=== PATIENT | male | born 1950 | race Caucasian/White ===

== ENCOUNTER → 2017-12-28 | Outpatient (CLI) | payer MEDICARE, BC | LOC: PLD 11:39 → LAB SHORT 11:39 | DX: L57.0 Actinic keratosis (principal) | CPT/HCPCS: 88305 ==

== ENCOUNTER 2018-12-12 07:48 | Day surgery (SDC) | payer MEDICARE, BC ==
[~2018-12-12] VITALS: Ht 177.8 cm; Wt 76.3 kg
[~2018-12-12 07:48] MED LIST: ACET500 PO; AMLO5 PO; ATOR40TA PO; LO-DOSE ASPIRIN81 MG PO; ONE DAILY COMP1 EACH PO; PRAMIPEXOLE DIHY1 MG PO; Toprol Xl50 MG PO
--- NOTE | 2018-12-12 11:49 | NUR ---
12/12/18 1149 Marni Camacho PT STATES HE IS HAVING A HARD TIME URINATING. PT RECEIVED EXTRA FLUIDS D/T LENGTH OF PROCEDURE. ORSC.KT STATES IN REPROT THAT PT URINATED DURING PROCEDURE. PT BP ELEVATED IN STEP DOWN. DR ARCE NOTIFIED OF BOTH THESE EVENTS. NO ORDERS RECEIVED AT THIS TIME. PT OK TO DISCHARGE HOME PER DR ARCE. ADVISED PT TO LET US KNOW IF HIS URINATION DOES NOT IMPROVE. PT AND BOTH STATE AN UNDERSTANDING.
== END 2018-12-12 11:54 | disposition home or self-care (01) ==
LOC: ORSCSDS 07:48
PROVIDERS: Internal Medicine Gastroenterology
PROC: 0DBH8ZX Excision of Cecum, Via Natural or Artificial Opening Endoscopic, Diagnostic (ICD-10-PCS; principal; 2018-12-12 09:15)
PROC: 0DBN8ZX Excision of Sigmoid Colon, Via Natural or Artificial Opening Endoscopic, Diagnostic (ICD-10-PCS; principal; 2018-12-12 09:15)
PROC: 0DBL8ZX Excision of Transverse Colon, Via Natural or Artificial Opening Endoscopic, Diagnostic (ICD-10-PCS; principal; 2018-12-12 09:15)
PROC: 0DBK8ZX Excision of Ascending Colon, Via Natural or Artificial Opening Endoscopic, Diagnostic (ICD-10-PCS; principal; 2018-12-12 09:15)
PROC: 0DBP8ZX Excision of Rectum, Via Natural or Artificial Opening Endoscopic, Diagnostic (ICD-10-PCS; principal; 2018-12-12 09:15)
DX: Z12.11 Encounter for screening for malignant neoplasm of colon (principal); D12.3 Benign neoplasm of transverse colon; D12.0 Benign neoplasm of cecum; D12.2 Benign neoplasm of ascending colon; K63.5 Polyp of colon; K62.1 Rectal polyp; K57.30 Diverticulosis of large intestine without perforation or abscess without bleeding; Z87.891 Personal history of nicotine dependence; Z79.899 Other long term (current) drug therapy; Z79.82 Long term (current) use of aspirin
CPT/HCPCS: 88305; J1980; J2704; J7120

== ENCOUNTER 2019-05-08 21:45 | Emergency (ER) | payer MEDICARE, BC ==
[~2019-05-08] VITALS: Ht 177.8 cm; Wt 77.1 kg
== END 2019-05-08 23:36 | disposition home or self-care (01) ==
LOC: ER 21:45
DX: S01.81XA Laceration without foreign body of other part of head, initial encounter (principal); Z23 Encounter for immunization; I10 Essential (primary) hypertension; E78.00 Pure hypercholesterolemia, unspecified; M19.90 Unspecified osteoarthritis, unspecified site; Z88.8 Allergy status to other drugs, medicaments and biological substances; Z79.899 Other long term (current) drug therapy; W11.XXXA Fall on and from ladder, initial encounter
CPT/HCPCS: 12013; 90471; 90714; 99282-25

== ENCOUNTER → 2019-12-03 | Outpatient (CLI) | payer MEDICARE, BC | END | disposition home or self-care (01) | LOC: PLD 10:54 → LAB SHORT 10:54 | DX: L57.0 Actinic keratosis (principal) | CPT/HCPCS: 88305 ==

== ENCOUNTER 2022-05-29 13:53 | Emergency (ER) | payer OTHER, MEDICARE, BC ==
[~2022-05-29] VITALS: Ht 175.3 cm; Wt 77.1 kg
[2022-05-29] MEDS ORDERED: CEPH500 PO (15:20)
== END 2022-05-29 16:32 | disposition home or self-care (01) ==
LOC: ER 13:53
DX: S61.412A Laceration without foreign body of left hand, initial encounter (principal); I10 Essential (primary) hypertension; W01.198A Fall on same level from slipping, tripping and stumbling with subsequent striking against other object, initial encounter; Z79.899 Other long term (current) drug therapy; Z88.8 Allergy status to other drugs, medicaments and biological substances; Z23 Encounter for immunization
CPT/HCPCS: 12002; 90471; 90714; 99282-25

== ENCOUNTER → 2023-08-12 | Outpatient (CLI) | payer MEDICARE, BC ==
[~2023-08-12] MED LIST changes: +CEPH500 PO
[2023-08-12 15:32] LABS: Source, Urine Clean Catch
[2023-08-12 15:58] LABS: Appearance, Urine Cloudy (Clear); Bilirubin, Urine Neg (Neg); Blood, Urine 1+ (Neg); Color, Urine Yellow (P-Yellow); Glucose Qualitative, Urine Neg (Normal); Ketones, Urine Neg (Neg); Leukocyte Esterase, Urine 2+ (Neg); Nitrite, Urine Pos (Neg); Protein, Urine Trace (Neg); Urobilinogen, Urine NORM (Normal)
[2023-08-12 15:59] LABS: Bacteria Many /hpf; Red Blood Cells, Urine 25-50 /hpf (0-2); Squamous Epithelial Cells Not Seen /hpf (Few); White Blood Cells, Urine 50-100 /hpf (0-5)
== END ==
LOC: LAB 13:32 → LAB SHORT 13:32
PROVIDERS: Physician Assistant
DX: R35.0 Frequency of micturition (principal)
CPT/HCPCS: 81001

== ENCOUNTER → 2023-09-05 | Outpatient (CLI) | payer MEDICARE, BC | LOC: LAB SHORT 09:18 → LAB 09:18 | DX: N39.0 Urinary tract infection, site not specified (principal) | CPT/HCPCS: 87077; 87086; 87186 ==

== ENCOUNTER 2024-04-30 08:49 | Inpatient (IN) | payer MEDICARE, BC ==
[~2024-04-30] VITALS: Ht 177.8 cm; Wt 74.0 kg
[2024-04-30 09:28] LABS: BASOPHILS ABSOLUTE AUTO 0.04 K/mm3 (0.00-0.23); BASOPHILS PERCENT AUTO 1 % (0-2); EOSINOPHILS ABSOLUTE AUTO 0.23 K/mm3 (0.00-0.68); EOSINOPHILS PERCENT AUTO 3 % (0-6); Hematocrit 43.6 % (37.0-53.0); IMMATURE GRAN ABSOLUTE AUTO 0.03 K/mm3 (0.00-0.10); IMMATURE GRAN PERCENT AUTO 0 % (0-1); LYMPHOCYTES ABSOLUTE AUTO 2.13 K/mm3 (0.84-5.20); LYMPHOCYTES PERCENT AUTO 26 % (21-46); MONOCYTES ABSOLUTE AUTO 0.69 K/mm3 (0.16-1.47); MONOCYTES PERCENT AUTO 8 % (4-13); Mean Corpuscular HGB 31.7 pg (26.0-34.0); Mean Corpuscular HGB Conc 32.1 g/dL (31.5-36.5); Mean Corpuscular Volume 99 fL (80-100); Mean Platelet Volume 10.7 fL (9.1-12.4); NEUTROPHILS ABSOLUTE AUTO 5.17 K/mm3 (1.96-9.15); NEUTROPHILS PERCENT AUTO 62 % (41-73); Platelet Count 251 K/mm3 (150-400); RDW Coefficient Variation 12.1 % (11.7-14.2); RDW Standard Deviation 44.5 fL (35.1-46.3); Red Blood Cell Count 4.41 M/mm3 (4.30-5.90); White Blood Cell Count 8.29 K/mm3 (4.00-11.30)
[2024-04-30] MEDS ORDERED: Ketamine HCl 100 MG / ML 5ML Vial IV ONE (10:30)
[2024-04-30 10:32] LABS: Albumin, Blood 3.6 g/dL (3.4-5.0); Albumin/Globulin Ratio 1.2 (0.8-1.8); Bilirubin, Total 0.5 mg/dL (0.1-1.0); Bun/Creatinine Ratio 18.2 (12.0-20.0); Creatinine, Blood 1.32 mg/dL (0.60-1.20); Globulin, Blood 3.1 g/dL (2.2-4.0); Potassium, Blood 4.1 mmol/L (3.5-5.5); Total Protein, Blood 6.7 g/dL (6.4-8.2)
[2024-04-30] MEDS ORDERED: Midazolam HCl 1MG / ML 2ML Vial IV ONE (10:35)
[2024-04-30] MEDS ORDERED: CeFAZolin Sodium 1,000 MG in NS 50 ML IV ONE (12:05)
[2024-04-30] MEDS ORDERED: Ketorolac Tromethamine 15mg Vial IV ONE (13:15)
[2024-04-30] MEDS ORDERED: Morphine Sulfate 4 MG/1 ML Injection IV ONE (13:45)
[2024-04-30] MEDS ORDERED: Ondansetron HCl 2 MG / ML 2ML Vial IV ONE (13:45)
[2024-04-30] MEDS ORDERED: Magnesium Hydroxide Conc 10 ML UDC PO PRN (15:05)
[2024-04-30] MEDS ORDERED: Temazepam 15 MG Cap PO PRN (15:05)
[2024-04-30] MEDS ORDERED: OxyCODONE HCL 5 MG TAB PO PRN (15:05)
[2024-04-30] MEDS ORDERED: Morphine Sulfate 4 MG/1 ML Injection IV PRN (15:05)
--- NOTE | 2024-04-30 18:14 | NUR ---
Pt admitted to floor at 1808, VSS, denies SOB, denies any pain, A-Ox4, ambulates independently, on RA, chest tube in place to -20 suction, dressing C/D/I.
[2024-04-30 18:15] VITALS: BP 192/96
[2024-04-30 19:35] VITALS: BP 149/64
[2024-04-30] MEDS ORDERED: Docusate Sodium 100 MG Cap PO SCH (21:00)
[2024-04-30] MEDS ORDERED: Acetaminophen 500 MG Tab PO SCH (21:00)
[2024-04-30] MEDS ORDERED: Pramipexole DI-HCL 1 Mg Tab PO SCH (21:00)
--- NOTE | 2024-05-01 03:02 | NUR ---
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 ALERT AND ORIENTED X 4. UP AD GABE WITH OBS. CHEST TUBE OF LEFT SIDE AT -20 SUCTION. TOLERATING FLUIDS WELL. SLIGHT DRAINAGE - SANGUINUS IN CANISTER. HAS BEEN RESTING QUIETLY WITH FEW INTERRUPTIONS NOTED. ABLE TO REPOSITION SELF IN BED WITHOUT ASSIST. NO NOTED S/S SOB. WILL CONTINUE TO MONITOR. CALL LIGHT IN REACH, RAILS UP X 2 AND BID IN LOW POSITION.
[2024-05-01 03:49] VITALS: BP 151/83
[2024-05-01 05:13] LABS: BASOPHILS ABSOLUTE AUTO 0.02 K/mm3 (0.00-0.23); BASOPHILS PERCENT AUTO 0 % (0-2); EOSINOPHILS ABSOLUTE AUTO 0.14 K/mm3 (0.00-0.68); EOSINOPHILS PERCENT AUTO 1 % (0-6); Hematocrit 39.9 % (37.0-53.0); Hemoglobin 13.2 g/dL (13.5-17.5); IMMATURE GRAN ABSOLUTE AUTO 0.03 K/mm3 (0.00-0.10); IMMATURE GRAN PERCENT AUTO 0 % (0-1); LYMPHOCYTES ABSOLUTE AUTO 1.65 K/mm3 (0.84-5.20); LYMPHOCYTES PERCENT AUTO 14 % (21-46); MONOCYTES ABSOLUTE AUTO 0.77 K/mm3 (0.16-1.47); MONOCYTES PERCENT AUTO 7 % (4-13); Mean Corpuscular HGB 32.4 pg (26.0-34.0); Mean Corpuscular HGB Conc 33.1 g/dL (31.5-36.5); Mean Corpuscular Volume 98 fL (80-100); Mean Platelet Volume 10.9 fL (9.1-12.4); NEUTROPHILS ABSOLUTE AUTO 9.22 K/mm3 (1.96-9.15); NEUTROPHILS PERCENT AUTO 78 % (41-73); Platelet Count 227 K/mm3 (150-400); Red Blood Cell Count 4.07 M/mm3 (4.30-5.90); White Blood Cell Count 11.83 K/mm3 (4.00-11.30)
[2024-05-01 05:42] LABS: Albumin, Blood 3.3 g/dL (3.4-5.0); Albumin/Globulin Ratio 1.2 (0.8-1.8); Bilirubin, Total 0.4 mg/dL (0.1-1.0); Bun/Creatinine Ratio 16.7 (12.0-20.0); Calcium, Blood 8.6 mg/dL (8.5-10.1); Creatinine, Blood 1.38 mg/dL (0.60-1.20); Globulin, Blood 2.7 g/dL (2.2-4.0); Potassium, Blood 4.5 mmol/L (3.5-5.5)
[2024-05-01 08:02] VITALS: BP 139/76
[2024-05-01] MEDS ORDERED: Losartan Potassium 50 MG Tab PO SCH (09:00)
[2024-05-01] MEDS ORDERED: Metoprolol Succinate 50 MG TABCR PO SCH (09:00)
[2024-05-01] MEDS ORDERED: Enoxaparin 40 MG/0.4 ML SYR SC SCH (09:00)
[2024-05-01] MEDS ORDERED: Atorvastatin 40 MG Tab PO SCH (09:00)
[2024-05-01] MEDS ORDERED: AmLODIPine Besylate 5 MG Tab PO SCH (09:00)
[2024-05-01] MEDS ORDERED: LOSA50 PO (12:45)
[2024-05-01 16:08] VITALS: BP 149/79
--- NOTE | 2024-05-01 17:16 | NUR ---
SUMMARY- AAOX4, BUT PT IS SHOWING SIGNS OF STM LOSS AND IS FORGETFUL. IND IN ROOM. PT ON RA. DR. RAMIREZ CLAMPED PT'S CHEST TUBE TODAY AND TURNED SUCTION OFF. DR. RAMIREZ LATER DISCONNECTED CHEST TUBE AND CAPPED IT. PT IS TOLERATING CHEST TUBE CLAMP WELL. NO ACUTE EVENTS THIS SHIFT. PT HAD MINIMAL COMPLAINTS OF PAIN AND DID NOT NEED ANY PAIN MEDS THIS SHIFT.
[2024-05-01 19:43] VITALS: BP 157/82
[2024-05-02 03:05] VITALS: BP 161/90
--- NOTE | 2024-05-02 03:14 | NUR ---
PT NOTED OOB UP IN HALLWAY DREED IN JEANS AND FLANNEL SHIRT. PT WAS ASKED HIS INTENTIONS. PT RESPONDED HE WAS GOING DOWN STAIRS TO MAKE A PHONE CALL. PT REDIRECTED AND ASSISTED BACK TO BED. ON REQUEST PT STATED, "I WAS DOING FINE SO I TOOK THE TUBE OUT. PT ASSISTED BACK TO BED, VASELINE GAUZE APPLIED COVERED W/4X4, AND TAPED WELL. LUNGS SOUNDS NOTED CLEAR. PT CONFUSED TO PLACE AND TIME. VSS STABLE, EXCEPT BP 161/90. MD PATTEN NOTIFIED. STAT CXR ORDERED. PT REFUSED HOSPITAL [facility]. MONITORED FREQUENTLY.
--- NOTE | 2024-05-02 03:49 | NUR ---
PT ACCIDENTALLY PULLED OUT CHEST TUBE FROM L LUNG, STAT PORTABLE CXR DONE, SPOKE WITH DR PATTEN WHO REPORTS THAT THE CXR SHOWS THE L LUNG IS STILL FULLY EXPANDED AND ORDERED ANOTHER CXR IN 8 HOURS TO CONTINUE TO MONITOR. PRIMARY RN IS AWARE.
--- NOTE | 2024-05-02 03:50 | NUR ---
STATES CXR, "...LOOKS GOOD. REPEAT CXR IN 8 HRS."
[2024-05-02 05:32] LABS: BASOPHILS ABSOLUTE AUTO 0.03 K/mm3 (0.00-0.23); BASOPHILS PERCENT AUTO 0 % (0-2); EOSINOPHILS ABSOLUTE AUTO 0.24 K/mm3 (0.00-0.68); EOSINOPHILS PERCENT AUTO 2 % (0-6); Hematocrit 40.7 % (37.0-53.0); Hemoglobin 13.6 g/dL (13.5-17.5); IMMATURE GRAN ABSOLUTE AUTO 0.04 K/mm3 (0.00-0.10); IMMATURE GRAN PERCENT AUTO 0 % (0-1); LYMPHOCYTES ABSOLUTE AUTO 1.52 K/mm3 (0.84-5.20); LYMPHOCYTES PERCENT AUTO 15 % (21-46); MONOCYTES ABSOLUTE AUTO 0.81 K/mm3 (0.16-1.47); MONOCYTES PERCENT AUTO 8 % (4-13); Mean Corpuscular HGB 32.5 pg (26.0-34.0); Mean Corpuscular HGB Conc 33.4 g/dL (31.5-36.5); Mean Corpuscular Volume 97 fL (80-100); NEUTROPHILS ABSOLUTE AUTO 7.65 K/mm3 (1.96-9.15); NEUTROPHILS PERCENT AUTO 74 % (41-73); Platelet Count 229 K/mm3 (150-400); RDW Coefficient Variation 11.9 % (11.7-14.2); RDW Standard Deviation 42.4 fL (35.1-46.3); Red Blood Cell Count 4.19 M/mm3 (4.30-5.90); White Blood Cell Count 10.29 K/mm3 (4.00-11.30)
[2024-05-02 05:55] LABS: Albumin, Blood 3.3 g/dL (3.4-5.0); Bilirubin, Total 0.3 mg/dL (0.1-1.0); Bun/Creatinine Ratio 15.6 (12.0-20.0); Calcium, Blood 8.9 mg/dL (8.5-10.1); Creatinine, Blood 1.22 mg/dL (0.60-1.20); Globulin, Blood 3.2 g/dL (2.2-4.0); Potassium, Blood 3.9 mmol/L (3.5-5.5); Total Protein, Blood 6.5 g/dL (6.4-8.2)
--- NOTE | 2024-05-02 07:35 | NUR ---
0700- PT ANXIOUS AND ASKING TO LEAVE WHEN RECEIVING REPORT. BOTH RN'S REINFORCING IMPORTANCE OF GETTING CXR AT 1145 AND HAVING A SAFE DC. PT VERBALIZES UNDERSTANDING, BUT STATES, "I JUST DON'T SEE THE POINT OF STAYING ANY LONGER." BOTH CHARGES NOTIFIED.
--- NOTE | 2024-05-02 07:37 | NUR ---
0743- PT DRESSED AND ATTEMPTING TO WALK OUT THE DOOR. THIS RN ASKED IF PT COULD PLEASE WAIT TO LEAVE AND SIGN AMA PAPERWORK, MAKE ATTEMPTS TO CALL DR. COBURN AND DR. RAMIREZ, WELL HIS . PT WAITING IN HIS ROOM.
--- NOTE | 2024-05-02 07:38 | NUR ---
0723- THIS RN CALLED DR. COBURN AND MD IS NOT IN THE HOSPITAL AT THIS TIME. MD ASKED FOR DR. RAMIREZ TO BE CALLED.
--- NOTE | 2024-05-02 07:39 | NUR ---
0725- PATIENT STATES, "YOU CAN'T LEGALLY HOLD HE HERE YOU KNOW." THIS RN STATES, "YOU'RE RIGHT, BUT I WOULD LIKE TO NOTIFY THE SOFTWARE SUPPORT SPECIALIST DR. RAMIREZ." PT THEN BEGAN WALKING STRAIGHT FOR THE EXIT DOOR. PT HAS OCCLUSIVE PETROLEUM GAUZE DRESSING IN PLACE OVER CHEST TUBE INSERTION SITE AND PT ALSO REMOVED HIS OWN IV. PT LEFT AMA WITHOUT SIGNING PAPERWORK.
== END 2024-05-02 07:30 | disposition left against medical advice (07) | DRG 201 ==
LOC: ER 08:49 → MEDS 08:50
PROVIDERS: Family Medicine; Physician Assistant; ADMIT Internal Medicine Endocrinology, Diabetes & Metabolism
PROC: 0W9B30Z Drainage of Left Pleural Cavity with Drainage Device, Percutaneous Approach (ICD-10-PCS; principal; 2024-04-30)
DX: J93.12 Secondary spontaneous pneumothorax (principal); E78.5 Hyperlipidemia, unspecified; I12.9 Hypertensive chronic kidney disease with stage 1 through stage 4 chronic kidney disease, or unspecified chronic kidney disease; J43.9 Emphysema, unspecified; I70.1 Atherosclerosis of renal artery; M19.90 Unspecified osteoarthritis, unspecified site; N18.32 Chronic kidney disease, stage 3b; E78.00 Pure hypercholesterolemia, unspecified; G25.81 Restless legs syndrome; Z53.29 Procedure and treatment not carried out because of patient's decision for other reasons; Z88.8 Allergy status to other drugs, medicaments and biological substances; Z87.891 Personal history of nicotine dependence; Z79.899 Other long term (current) drug therapy; Z79.2 Long term (current) use of antibiotics; Z90.89 Acquired absence of other organs; Z98.890 Other specified postprocedural states
CPT/HCPCS: 32551; 36415; 71045; 71046; 71260; 80053; 83880; 84484; 85025; 85379; 93005; 93010; 94760; 94762; 96365-59; 96372; 96375-59; 99285-25; A9270; G0378; J0690; J1650; J1885; J2250; J2270; J2405; Q9967